=== PATIENT | male | born 2000 | race Caucasian/White ===

== ENCOUNTER 2024-06-02 21:59 | Emergency (ER) | payer BC, SELFPAY ==
[2024-06-02 22:00] VITALS: BP 119/74
--- NOTE | 2024-06-02 22:48 | ED.GENMED ---
History of Present Illness
General
Chief Complaint: Musculo-Skeletal Complaint
Time Seen by Provider: 06/02/24 22:13
History of Present Illness
History of Present Illness:
23-year-old male without significant past medical history presenting to the emergency department for right-sided rib pain. 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 Pain improved, however today at
practice, had another big hit to the right rib region. Denies any significant pain to the area, however reports pain with cough and deep inspiration. Denies chest pain. Denies fever. Denies abdominal pain or GI symptoms. Denies any additional
injuries. Denies additional acute medical complaints
Past History
Past History
ED Past Medical History: Other (Mesenteric adenitis, concussion)
ED Past Surgical History: Other (Hernia repair as an )
Social History
Tobacco: Non-smoker
Alcohol: None
Drug: None
Personal: Single
Living: with family
Phy Exam
Physical Exam
Physical Exam:
General: Well-appearing, no clinical signs of dehydration, nontoxic and in no acute distress
HEENT: protecting airway
Neck: appears supple
CV: Normal heart rate, regular rhythm
Resp: No accessory muscle use, no increased work of breathing, lungs clear to auscultation bilaterally. No significant tenderness to the right rib angles or chest wall
Abd: Soft and non-distended, no tenderness to palpation
Extremities: No deformities, no swelling
Neuro: alert, no focal neurologic deficit
: deferred
Rectal: deferred
Psych: Normal affect
Skin: Intact
Course
Orders/Labs/Results
Orders:
Orders
06/02/24 22:04
Ribs, Right 3 View W/PA Chest [CR Ribs-right 3 Vw W/pa Chest*] Urgent
Comment:
Reason For Exam: HIT PLAYING RUGBY
Vital Signs
Initial and Last Documented VS:
Initial Vital Signs
Temp Pulse Resp BP Pulse Ox
98 F 90 18 119/74 98
06/02/24 22:00 06/02/24 22:00 06/02/24 22:00 06/02/24 22:00 06/02/24 22:00
Last Documented Vital Signs
Temp Pulse Resp BP Pulse Ox
98 F 90 18 119/74 98
06/02/24 22:00 06/02/24 22:00 06/02/24 22:00 06/02/24 22:00 06/02/24 22:00
MDM/Problems Addressed
MDM/Problems Addressed:
23-year-old male presenting for right rib pain after getting struck at rugby practice. Vital signs on arrival are normal.
On exam, patient well-appearing, no acute distress or discomfort. Benign examination of the chest. Lungs clear to auscultation with lower suspicion for pneumothorax. No significant reproducible tenderness to the rib region. Suspect mild
contusion. Patient without any cardiac risk factors, notes symptoms started after trauma, without concern for ACS. X-ray obtained, no fracture or malalignment. At this time feel stable for discharge with continued outpatient supportive therapy.
Return precautions discussed and patient verbalized understanding
*Critical Care Note
Total Time (30-74mins, 75-104mins- exclusive of procedures): Not Applicable
ED Attending Note
-
Portions of this chart may have been created with voice recognition software.� Occasional wrong word or��sound alike� substitutions may have occurred due to the inherent limitations of voice recognition software.
Discharge Plan
Departure
Patient Disposition: Home (Routine Discharge)
Date of Disposition: 06/02/24
Time of Disposition: 22:47
Patient with high blood pressure during this ER visit?: No
Condition: Good
Discharge Problem:
Contusion of rib on right side
Instructions: Bruised Rib (DC)
Prescriptions:
No Action
Anti-Inflamatory
1 PRN PRN (Reason: pain )
Patient Comments:
pt doesnt not know the name, takes it for his shoulder
hydrocodone-acetaminophen 1 TABLET tablet
1 - 2 tab PO Q4HPRN PRN (Reason: moderate to severe pain) Qty: 20 0RF
amoxicillin-pot clavulanate 1 TABLET tablet
1 tab PO Q12 Qty: 10 0RF
Referrals:
NONE,* [Family Provider] -
Activity Restrictions/Additional Instructions:
You were seen in the emergency department for rib pain
You were found to have a normal x-ray of your ribs. You are suspected to have a contusion or bruise to your ribs
Please follow-up closely with your primary care physician.
Return to the emergency department for any worsening of your symptoms, or any development of chest pain, difficulty breathing, abdominal pain with persistent vomiting and inability to tolerate food or liquid by mouth (concern for dehydration),
weakness, headache or confusion, fever greater than 100.4, or any additional symptoms that are concerning to you.
Thank you for choosing [facility].
Interventions
Interventions:
*Risk Screen - Suicide Last Done: 06/02/24 22:00
*General Assessment Last Done: 06/02/24 22:31
*Neglect/Abuse Screening Last Done: 06/02/24 22:00
ED-Musculoskeletal Assessment Last Done: 06/02/24 22:31
Discharge Date and Time
Print Language: YAKUT
[2024-06-02 22:55] VITALS: BP 124/82
== END 2024-06-02 22:55 | disposition home or self-care (01) ==
LOC: EMR 21:59
PROVIDERS: EMERGENCY PHYSICIAN Student in an Organized Health Care Education/Training Program
DX: S20.211A Contusion of right front wall of thorax, initial encounter (principal); W50.0XXA Accidental hit or strike by another person, initial encounter; Y93.63 Activity, rugby; Z87.820 Personal history of traumatic brain injury
CPT/HCPCS: 99283; 71101

== ENCOUNTER 2024-08-04 12:54 | Emergency (ER) | payer OTHER, SELFPAY ==
[2024-08-04 12:55] VITALS: BP 147/94
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
== END 2024-08-04 14:56 | disposition home or self-care (01) ==
LOC: EMR 12:54
PROVIDERS: EMERGENCY PHYSICIAN Emergency Medicine
DX: S23.41XA Sprain of ribs, initial encounter (principal); V43.52XA Car driver injured in collision with other type car in traffic accident, initial encounter; Y92.410 Unspecified street and highway as the place of occurrence of the external cause
CPT/HCPCS: 99283; 71101